=== PATIENT | male | born 1950 | race African-American/Black ===

== ENCOUNTER 2017-09-25 08:06 | Outpatient (CLI) | payer MEDICARE ==
[2017-09-25] MEDS ORDERED: Iopamidol 370 76% 100 ML VIAL ONE (16:09)
== END 2017-09-25 08:07 | disposition home or self-care (01) ==
LOC: BICCT 08:06
PROVIDERS: ATTEND Internal Medicine Gastroenterology
DX: D3A.026 Benign carcinoid tumor of the rectum (principal)
CPT/HCPCS: 74177

== ENCOUNTER 2017-10-14 08:06 | Outpatient (CLI) | payer MEDICARE ==
--- NOTE | 2017-10-14 11:32 | MRI ---
MRI OF THE ABDOMEN WITHOUT AND WITH CONTRAST: Date: 10/14/17 COMPARISON: CT abdomen/pelvis dated 09/25/17. HISTORY: Carcinoid tumor of rectum. Prominent pancreatic duct seen on prior CT. TECHNIQUE: Multiplanar, multisequence MR images were obtained of the abdomen without and with IV contrast. FINDINGS: There is a large filling defect within the gallbladder consistent with a large gallstone measuring 1. 7 cm in size. There is prominence of the cystic duct and common bile duct. The common bile duct measu res 9.0 mm in size. The pancreatic duct is also mildly enlarged measuring approximately 3.0 mm in siz e. No filling defects are seen within either the common bile duct or pancreatic duct. MRCP images con firm enlargement of the ducts. No enhancing mass is seen in the head of the pancreas at the ampulla o f Vater to suggest a mass as a cause for the ductal dilatation. No significant intrahepatic ductal di latation is seen. There are two well circumscribed nonenhancing foci of high T2 signal in the kidney measuring up to 7. 0 mm in size, which likely represent cysts. The liver, left kidney, adrenal glands, and spleen are un remarkable. Other than the pancreatic ductal dilatation, no other pancreatic abnormality is seen. No abdominal adenopathy is seen. No marrow signal abnormality is present. IMPRESSION: 1. Cholelithiasis. 2. Right renal cysts. 3. Prominence of the common bile duct and pancreatic duct. These are nonspecific. Correlate with lab oratory values. POS: HARJIT
[2017-10-14] MEDS ORDERED: Gadobenate Dimeglumine 529 MG/1 ML (20ML VIAL) ONE (15:19)
== END 2017-10-14 08:07 | disposition home or self-care (01) ==
LOC: MRI 08:06
PROVIDERS: ATTEND Internal Medicine Gastroenterology
DX: D3A.026 Benign carcinoid tumor of the rectum (principal); R93.5 Abnormal findings on diagnostic imaging of other abdominal regions, including retroperitoneum; K80.20 Calculus of gallbladder without cholecystitis without obstruction; N28.1 Cyst of kidney, acquired
CPT/HCPCS: 74183; 82565; A9579